=== PATIENT | female | born 1980 | race Caucasian/White ===

== ENCOUNTER 2017-05-11 13:06 | Emergency (ER) | payer OTHER ==
[2017-05-11 13:31] VITALS: BP 111/73
--- NOTE | 2017-05-11 13:51 | UC ---
Skin Complaint HPI - HPI Summary HPI Summary: 36 y/o female presents to the urgent care c/o rash in the LF tight increasing in size after a tick bite since 05/06/2017 . Pt reports she has Hx of tick bite and never taking prophylactic antibiotics. She usually applies an essential oil for tick bites that repels them easily. However after this tick bite, she noticed the red rash was increasing in size. She also went out hiking 2 days ago and now she also itchy rash in both arms and both feet. Seh thinks it is poison niki. She had a midl ASH yesterday which resolved with Advil.Pt denies fever, SOB, chest pain, abdominal pain, N/V/D. She has been taking Benadryl PO for itchiness. - History of Current Complaint Chief Complaint: UCRash Time Seen by Provider: 05/11/17 13:36 Stated Complaint: RASH Hx Obtained From: Patient Hx Last Menstrual Period: 05/10/17 ?: No Onset/Duration: Gradual Onset, Lasting Days - 6 days, Still Present Skin Exposure Onset/Duration: Days Ago Timing: Constant Onset Severity: Mild Current Severity: Moderate Pain Intensity: 0 Pain Scale Used: 0-10 Numeric Location: Discrete - Bull's eye rash in left tight, other rash in both forearms and Both feet Character: Pruritus, Redness Aggravating Factor(s): Touch Alleviating Factor(s): OTC Meds Associated Signs & Symptoms: Positive: Rash. Negative: Nausea, Vomiting, Fever , Chest Pain, Abdominal Pain Related History: Possible Reaction to: Insect, Possible Reaction to: Environmental Exposure - Allergy/Home Medications Allergies/Adverse Reactions: Allergies Allergy/AdvReac Type Severity Reaction Status Date / Time Latex Allergy Itching Verified 11/21/15 06:54 Review of Systems Constitutional: Negative Skin: Rash - bull's eye rash in left tigh, and other rash in both forearms and both feet Eyes: Negative ENT: Negative Respiratory: Negative Cardiovascular: Negative Gastrointestinal: Negative Genitourinary: Negative Motor: Negative Neurovascular: Negative Musculoskeletal: Negative Neurological: Headache - mild yesterday Psychological: Negative Is Patient Immunocompromised?: No All Other Systems Reviewed And Are Negative: Yes PMH/Surg Hx/FS Hx/Imm Hx Previously Healthy: Yes Endocrine History: Hypothyroidism - Surgical History Surgical History: Yes Surgery Procedure, Year, and Place: [place] [facility]. tonsilectomy - Family History Known Family History: Positive: Cardiac Disease, Hypertension, Diabetes Family History: Hypothyrodism - Social History Occupation: Employed Full-time Lives: With Family Alcohol Use: None Substance Use Type: None Smoking Status (MU): Never Smoked Tobacco Physical Exam Triage Information Reviewed: Yes Vital Signs: Initial Vital Signs Temp 99.9 F 05/11/17 13:25 Pulse 76 05/11/17 13:25 Resp 18 05/11/17 13:25 BP 111/73 05/11/17 13:25 Pulse Ox 100 05/11/17 13:25 - Additional Comments Vital Signs Reviewed: Yes General: well developed, well nourished female, sitting in the examining table w /o any apparent distress. Eyes: Positive: Conjunctiva Clear - PERRLA, EOMI ENT: Positive: Normal ENT inspection, Hearing grossly normal, Pharynx normal, TMs normal Neck: Positive: Supple, Nontender, No Lymphadenopathy Respiratory: Positive: Chest nontender, Lungs clear, Normal breath sounds Cardiovascular: Positive: RRR, No Murmur, Pulses Normal Abdomen Description: Positive: Nontender, No Organomegaly, Soft. Negative: CVA Tenderness (R), CVA Tenderness (L) Bowel Sounds: Positive: Present Musculoskeletal: Positive: Strength Intact, ROM Intact, No Edema Neurological Exam: Normal Psychological Exam: Normal Skin: Positive: rashes - mid aspect of Left thigh with bull's eye erythematous patch with a central clearing about 6cm x5cm in size, non tender to palpation, warm to touch, no swelling or drainage observed. Other different rash in both distal forearms and both ventral side of feet with erythematous linear streaks w/ papules, blisters and vesicles with signs of scoriations. non tender to palpation, mild swelling observed in some. Course/Dx - Course Course Of Treatment: 36 y/o female presents to the urgent care c/o rash in the LF tight increasing in size after a tick bite since 05/06/2017 . Pt reports she has Hx of tick bite and never taking prophylactic antibiotics. She usually applies an essential oil for tick bites that repels them easily. However after this tick bite, she noticed the red rash was increasing in size. She also went out hiking 2 days ago and now she also itchy rash in both arms and both feet. Seh thinks it is poison niki. She had a midl ASH yesterday which resolved with Advil.Pt denies fever, SOB, chest pain, abdominal pain, N/V/D. She has been taking Benadryl PO for itchiness. Hx obtained. Pt most likely with Lyme Disease on examination, with another rash that appear as poison Niki or sumac. Pt Rx Doxycycline PO . Advised to f/u with her PCP in 2 weeks for Lyme serology and further managment. However strongly advised to f/u with Dr Matthews if serology returns positive. Pt Rx Traimcinolone topical cream for the other rash and advised to keep taking Benadryl PO for itchiness. Pt understood and agreed with plan of care. - Differential Diagnoses - Skin Complaint Differential Diagnoses: Allergic Reaction, Cellulitis, Contact Dermatitis, Eczema, Local Allergic Reaction, Lymphadenitis, Poison Niki, Poison [place], Tick Born Illness, Urticaria, Other - insect bites, bed bugs - Diagnoses Provider Diagnoses: 1- Bull's eye rash possibly lyme disease. 2- poison niki Discharge - Discharge Plan Condition: Stable Disposition: HOME Prescriptions: DOXYcycline CAP(*) [DOXYcycline 100MG CAP(*)] 100 mg PO BID #28 cap Triamcinolone 0.1% OINT(NF) [Kenalog 0.1% OINT(NF)] 1 applic .SEE ORDER TID #1 tube Patient Education Materials: Lyme Disease (ED), Poison Niki (ED) Referrals: Byron CORNELIUS,Christopher Aviles [Medical Doctor] - 2 Weeks Ankit Ordonez MD [Primary Care Provider] - 2 Weeks Additional Instructions: 1- Please take full course of antibiotic to avoid resistance. 2- F/u with your PCP in 2 weeks or lyme serology and further management in Lyme Disease 3- F/u with DR Matthews who specializes in Lyme Disease just in case the serology returns positive. 4- Apply Triamcinolone cream for the other rash as directed. Continue taking the Benadryl PO you have at home for itchiness
== END 2017-05-11 14:14 | disposition home or self-care (01) ==
LOC: UCEAST 13:06
DX: L23.7 Allergic contact dermatitis due to plants, except food (principal); H57.8 Other specified disorders of eye and adnexa; E03.9 Hypothyroidism, unspecified
CPT/HCPCS: 99212; G0463

== ENCOUNTER 2018-02-14 16:18 | Emergency (ER) | payer OTHER ==
--- NOTE | 2018-02-14 16:46 | UC ---
Complaint Female HPI - HPI Summary HPI Summary: 37 yo female presents with 5 days of dysuria. She has been drinking a lot of water and cranberry juice to "flush" out her symptoms. She tells me that about 4 months ago she had similar symptoms and was treated for a UTI with resolution of symptoms. Recently has been feeling pressure in bladder and like she is not "emptying her bladder" when she goes. Denies fever, chills, abdominal pain, n/v/ d/c, hematuria, vaginal pain/discharge. No hx of kidney stone. - History Of Current Complaint Stated Complaint: UTI Time Seen by Provider: 02/14/18 16:46 Hx Obtained From: Patient Hx Last Menstrual Period: 05/10/17 Onset/Duration: Gradual Onset Severity Initially: Mild Severity Currently: Mild Pain Intensity: 3 Pain Scale Used: 0-10 Numeric - Allergies/Home Medications Allergies/Adverse Reactions: Allergies Allergy/AdvReac Type Severity Reaction Status Date / Time latex Allergy Rash Verified 02/14/18 16:54 PMH/Surg Hx/FS Hx/Imm Hx Endocrine History: Hypothyroidism Psychological History: Anxiety - Surgical History Surgical History: Yes Surgery Procedure, Year, and Place: [place] [facility]. tonsilectomy - Family History Known Family History: Positive: Unknown, Cardiac Disease, Hypertension, Diabetes Family History: Hypothyrodism - Social History Occupation: Employed Full-time Lives: With Family Alcohol Use: None Substance Use Type: None Smoking Status (MU): Never Smoked Tobacco Review of Systems Constitutional: Negative Skin: Negative Respiratory: Negative Cardiovascular: Negative Gastrointestinal: Negative Genitourinary: Dysuria, Urgency Neurovascular: Negative Neurological: Negative Psychological: Negative All Other Systems Reviewed And Are Negative: Yes Physical Exam - Summary Physical Exam Summary: GENERAL: NAD. WDWN. No pain distress. SKIN: No rashes, sores, lesions, or open wounds. NECK: Supple. Nontender. No lymphadenopathy. CHEST: CTAB. No r/r/w. No accessory muscle use. Breathing comfortably and in no distress. CV: RRR. Without m/r/g. Pulses intact. Brisk cap refill. ABDOMEN: Soft. Mild TTP over bladder. No distention or guarding. No CVA tenderness. Bowel sounds present NEURO: Alert. CN II-XII grossly intact. PSYCH: Age appropriate behavior. Triage Information Reviewed: Yes Vital Signs: Vital Signs: Temp Pulse Resp BP Pulse Ox 97.6 F 65 16 119/71 100 02/14/18 16:47 02/14/18 16:47 02/14/18 16:47 02/14/18 16:47 02/14/18 16:47 Laboratory Tests 02/14/18 02/14/18 17:02 17:04 POC Urine Color Yellow POC Urine Clarity Clear POC Urine pH 7.0 POC Ur Specif [place] 1.015 POC Urine Protein Negative POC Ur Glucose (UA) Negative POC Urine Ketones Negative POC Urine Blood Negative POC Urine Nitrite Negative POC Urine Bilirubin Negative POC Urine Urobilinogen 0.2 POC U Leukocyte Esteras Negative POC Ur Test Negative Vital Signs Reviewed: Yes Complaint Female Dx - Course Course Of Treatment: UA negative for infection. Pt refused pelvic exam today. I discussed with her that we could treat her for a UTI based on her symptoms, but if her symptoms persist or worsen that she should f/u with her PCP. She was agreeable with this plan. - Differential Dx/Diagnosis Provider Diagnoses: Dysuria Discharge - Sign-Out/Discharge Documenting (check all that apply): Patient Departure - Discharge Plan Condition: Stable Disposition: HOME Prescriptions: Phenazopyridine 200 mg (NF) [Pyridium 200 MG tab *] 200 mg PO TID #6 tab Sulfamethox/Trimethoprim DS* [Bactrim DS 800/160 TAB*] 1 tab PO BID #10 tab Patient Education Materials: Dysuria (ED) Referrals: Ankit Ordonez MD [Primary Care Provider] - Additional Instructions: If you develop a fever, shortness of breath, chest pain, new or worsening symptoms - please call your PCP or go to the ED. - Billing Disposition and Condition Condition: STABLE Disposition: Home
[2018-02-14 16:54] VITALS: BP 119/71
--- NOTE | 2018-02-16 15:08 | UC ---
- Progress Note Progress Note: Urine final with no growth. If feeling better may continue anbx If no change in symptoms - stop anbx and needs f/u with PCP Discharge - Sign-Out/Discharge Documenting (check all that apply): Post-Discharge Follow Up - Discharge Plan Condition: Stable Disposition: HOME Prescriptions: Phenazopyridine 200 mg (NF) [Pyridium 200 MG tab *] 200 mg PO TID #6 tab Sulfamethox/Trimethoprim DS* [Bactrim DS 800/160 TAB*] 1 tab PO BID #10 tab Patient Education Materials: Dysuria (ED) Referrals: Ankit Ordonez MD [Primary Care Provider] - Additional Instructions: If you develop a fever, shortness of breath, chest pain, new or worsening symptoms - please call your PCP or go to the ED. - Billing Disposition and Condition Condition: STABLE Disposition: Home Attestations User Type: Provider - I was available for consult. This patient was seen by the JYOTHI. The patient was not presented to, seen by, or examined by me. -Gena
== END 2018-02-14 17:27 | disposition home or self-care (01) ==
LOC: UCEAST 16:18
DX: R30.0 Dysuria (principal)
CPT/HCPCS: 81003; 84702; 87086; 99212; G0463

== ENCOUNTER 2019-06-25 10:26 | Emergency (ER) | payer OTHER ==
--- NOTE | 2019-06-25 10:47 | ED ---
Head Injury - HPI Summary HPI Summary: This pt is a 38 y/o female presenting to [facility] c/o headache and back pain s/p mechanical fall this morning at 0730. Pt reports she slipped on ice and fell backwards hitting mostly her back but also her head "bounced off the pavement." Denies any LOC. Pt currently reports some nausea and having a difficulty time concentrating. Denies fever, vomiting, blurry vision. Currently pt rates her headache 4/10 in severity. LMP: couple of week ago. Denies risk or chance of . PMHx: termination 5 years ago, hypothyroidism. Denies any anticoagulants use. - History Of Current Complaint Chief Complaint: EDHeadInjury Stated Complaint: HEAD INJURY PER PT Time Seen by Provider: 06/25/19 10:34 Hx Obtained From: Patient Hx Last Menstrual Period: 03/07 Mechanism Of Injury: Blunt Trauma, Fall From A Standing Position Onset/Duration: Started Hours Ago, Still Present Onset of Pain: Hours Severity Initially: Moderate Pain Intensity: 4 Pain Scale Used: 0-10 Numeric Location of Head Injury: Diffuse Aggravating Factor(s): Other: - nothing Alleviating Factor(s): Other: - nothing Associated Signs And Symptoms: Nausea, Headache, Other: - POSITIVE: difficult time concentrating. NEGATIVE: vomiting, blurry vision - Allergies/Home Medications Allergies/Adverse Reactions: Allergies Allergy/AdvReac Type Severity Reaction Status Date / Time latex Allergy Rash Verified 03/29/18 10:12 Home Medications: Home Medications Cetirizine HCl [Zyrtec] 10 mg PO DAILY 06/25/19 [History Confirmed 06/25/19] Cholecalciferol TAB* [Vitamin D TAB*] 1,000 unit PO DAILY 06/25/19 [History Confirmed 06/25/19] Elderberry Fruit and Flower [Black Elderberry 575 mg] 1 cap PO DAILY 06/25/19 [ History Confirmed 06/25/19] Multivit-Min/Folic Acid/Vit K1 [Multi For Her 50 Plus Softgel] 1 each PO DAILY 06/25/19 [History Confirmed 06/25/19] Naproxen TAB* [Naprosyn 250 mg TAB*] 250 mg PO Q12HR PRN 06/25/19 [History Confirmed 06/25/19] PMH/Surg Hx/FS Hx/Imm Hx Endocrine/Hematology History: Reports: Hx Thyroid Disease - HYPOTHYROID Denies: Hx Diabetes Cardiovascular History: Denies: Hx Hypertension Respiratory History: Denies: Hx Asthma, Hx Chronic Obstructive Pulmonary Disease (COPD) GI History: Denies: Hx Ulcer Sensory History: Reports: Hx Contacts or Glasses - BOTH Denies: Hx Hearing Aid Opthamlomology History: Reports: Hx Contacts or Glasses - BOTH Psychiatric History: Reports: Hx Anxiety, Hx Depression - Surgical History Surgical History: Yes Surgery Procedure, Year, and Place: [place] [facility]. tonsilectomy Hx Anesthesia Reactions: No Infectious Disease History: No Infectious Disease History: Denies: Hx Hepatitis, Hx Human Immunodeficiency Virus (HIV), Traveled Outside the [place] in Last 30 Days - Family History Known Family History: Positive: Cardiac Disease, Hypertension, Diabetes - grandmother with type 1 DM, father with type 2 DM Family History: Hypothyrodism - Social History Alcohol Use: None Hx Substance Use: No Substance Use Type: Reports: None Hx Tobacco Use: No Smoking Status (MU): Never Smoked Tobacco Review of Systems Negative: Fever Negative: Blurred Vision Positive: Nausea. Negative: Vomiting Musculoskeletal: Other - POSITIVE: back pain Neurological: Other - POSITIVE: difficulty concentrating. NEGATIVE: LOC Positive: Headache All Other Systems Reviewed And Are Negative: Yes Physical Exam - Summary Physical Exam Summary: GENERAL: Patient is a well-developed and nourished female who is lying comfortable in the stretcher. Patient is not in any acute respiratory distress. Patient is tearful. HEAD AND FACE: No signs of trauma. No ecchymosis, hematomas or skull depressions. No sinus tenderness. EYES: PERRLA, EOMI x 2, No injected conjunctiva, no nystagmus. EARS: Hearing grossly intact. Ear canals and tympanic membranes are within normal limits. MOUTH: Oropharynx within normal limits. NECK: Supple, trachea is midline, no adenopathy, no JVD, no carotid bruit, no c- spine tenderness, neck with full ROM. CHEST: Symmetric, no tenderness at palpation LUNGS: Clear to auscultation bilaterally. No wheezing or crackles. CVS: Regular rate and rhythm, S1 and S2 present, no murmurs or gallops appreciated. ABDOMEN: Soft, non-tender. No signs of distention. No rebound no guarding, and no masses palpated. Bowel sounds are normal. EXTREMITIES: FROM in all major joints, no edema, no cyanosis or clubbing. NEURO: Alert and oriented x 3. No acute neurological deficits. Speech is normal and follows commands. SKIN: Dry and warm PSYCH: Patient is tearful. GCS: 15 Triage Information Reviewed: Yes Vital Signs On Initial Exam: Initial Vitals Temp Pulse Resp BP Pulse Ox 97.9 F 70 18 132/82 99 06/25/19 10:26 06/25/19 10:26 06/25/19 10:26 06/25/19 10:26 06/25/19 10:26 Vital Signs Reviewed: Yes Procedures - Sedation Patient Received Moderate/Deep Sedation with Procedure: No Diagnostics - Vital Signs Vital Signs Temp Pulse Resp BP Pulse Ox 06/25/19 10:26 97.9 F 70 18 132/82 99 - Laboratory Result Diagrams: 06/25/19 11:07 06/25/19 11:07 Lab Statement: Any lab studies that have been ordered have been reviewed, and results considered in the medical decision making process. - Radiology Chest XR Radiology Interpretation Completed By: Radiologist Summary of Radiographic Findings: IMPRESSION: No active cardiopulmonary disease. Dr. Harvey has reviewed this report. - CT Brain CT CT Interpretation Completed By: Radiologist Summary of CT Findings: IMPRESSION: No acute intracranial pathology. Dr. Harvey has reviewed this report. - EKG 11:32 Cardiac Rate: Bradycardia - at 57 bpm EKG Rhythm: Sinus Bradycardia Summary of EKG Findings: EKG at 1132 shows sinus bradycardia at [address] elevations. Re-Evaluation - Re-Evaluation First Eval Re-Evaluation Time: 11:56 Comment: Reviewed the results with the patient. She will be discharged home. Head Injury Course/Dx Assessment/Plan: This pt is a 38 y/o female presenting to [facility] c/o headache and back pain s/p mechanical fall this morning at 0730. Pt reports she slipped on ice and fell backwards hitting mostly her back but also her head "bounced off the pavement." Denies any LOC. Pt currently reports some nausea and having a difficult time concentrating. Denies fever, vomiting, blurry vision. Currently pt rates her headache 4/10 in severity. LMP: a couple of weeks ago. Denies risk or chance of . PMHx: termination 5 years ago, hypothyroidism. Denies any anticoagulants use. Blood work without any significant abnormality. Troponin is 0.00. Chest x-ray impression: No active cardiopulmonary disease. Head CT impression: No acute intracranial pathology. In the ED course the patient was given ibuprofen and Zofran. After these medications the symptoms have improved. At this point, I discussed all the findings and test results with the patient. Patient was instructed to return to the emergency room immediately if any of the symptoms return or worsen. Patient understands and agrees. Neurological exam before discharge: Patient is alert and oriented x 3. No acute neurological deficits. Patient's vital signs are stable. Patient is to follow up with her PCP in the next 2 3 days. They understand and agree. The plan of care was discussed with the patient and patient understands and agrees with the plan of care. All questions were answered at patient satisfaction. There were no further complaints or concerns. - Diagnoses Provider Diagnoses: Head contusion, Atypical chest pain Discharge ED - Sign-Out/Discharge Documenting (check all that apply): Patient Departure - Discharge home - Discharge Plan Condition: Stable Disposition: HOME Patient Education Materials: Chest Pain (ED), Contusion in Adults (ED) Referrals: Ankit Ordonez MD [Primary Care Provider] - Additional Instructions: FOLLOW UP WITH YOUR PRIMARY CARE PROVIDER IN 2-3 DAYS. RETURN TO THE EMERGENCY DEPARTMENT FOR ANY WORSENING OR NEW SYMPTOMS. - Billing Disposition and Condition Condition: STABLE Disposition: Home - Attestation Statements Document Initiated by Rhona: Yes Documenting Scribe: Kerry Munguia Provider For Whom Rhona is Documenting (Include Credential): Akhil Harvey MD Scribe Attestation: Kerry Israel, scribed for Akhil Harvey MD on 06/27/19 at 0925. Scribe Documentation Reviewed: Yes Provider Attestation: The documentation as recorded by the Kerry sheikh accurately reflects the service I personally performed and the decisions made by , Akhil Harvey MD Status of Scribe Document: Viewed
--- OUTSIDE RECORDS SUMMARY | 2019-06-25 11:03 | XMS REPORT | Continuity of Care Document ---
:1980 External Reference #:[id number] Author Name Jomar Dao CNM Address [address] [place] [id number] Care Team Providers Name Role Phone Ankit Ordonez M.D. Care Team Information Order Administrator [phone] Problems Active Problems Provider Date Depressive disorder Jomar Dao CNM Onset: 02/06/2012 Disorder of thyroid gland Jomar Dao CNM Onset: 02/06/2012 Uterine leiomyoma Jomar Dao CNM Onset: 05/28/2019 Social History Type Date Description Comments Sex Unknown Tobacco Use Start: Unknown Patient has never smoked Allergies, Adverse Reactions, Alerts Description No Known Drug Allergies Medications Active Medications SIG Qnty Indications Ordering Provider Date Naproxen 2 PO x 1 dose 30tabs Jomar Dao CNM 04/16/2019 250mg Tablets with onset menses then 1 PO q 6-8 hours prn Zyrtec Allergy Unknown 10mg Capsules Levothyroxine Sodium Take 1 Tablet 30tabs Kate Dennis CNM 88mcg By Mouth Every Tablets Day Probiotic Unknown Capsules Carli FX Unknown Echinacea/Goldenseal Unknown Immune Boost Capsules Cranberry Concentrate Unknown [id number]-mg-Unit Capsules Vitamin D Unknown 2000Unit Capsules Turmeric Unknown 400mg Capsules Medications Administered in Office Medication SIG Qnty Indications Ordering Provider Date PT SCRN Tbco Id as Non User Jomar Dao CNM 05/28/2019 Injection PT SCRN Tbco Id as Non User Jomar Dao CNM 04/16/2019 Injection PT SCRN Tbco Id as Non User Jomar Dao CNM 04/15/2018 Injection Immunizations Description No Information Available Vital Signs Date Vital Result Comment 05/28/2019 3:10pm BP Systolic 122 mmHg BP Diastolic 64 mmHg Height 66.25 inches 5'6.25" Weight 191.00 lb BMI (Body Mass Index) 30.6 kg/m2 Last Menstrual Period 4403852 2 Parity 1 04/16/2019 3:17pm BP Systolic 128 mmHg BP Diastolic 72 mmHg Height 66.25 inches 5'6.25" Weight 188.00 lb BMI (Body Mass Index) 30.1 kg/m2 Last Menstrual Period [id number] 2 Parity 1 Results Description No Information Available Procedures Date Code Description Status 05/28/2019 51667 Echography Transvaginal Completed Medical Devices Description No Information Available Encounters Type Date Location Provider Dx Diagnosis Office Visit 05/28/2019 [facility] Jomar Dao CNM D25.9 Leiomyoma of uterus, 3:30p unspecified N94.6 Dysmenorrhea, unspecified Office Visit 04/16/2019 3:30p [facility] Jomar Dao Z01.419 Encntr for process trainer LEONEL exam (general) (routine) w/o abn findings N94.6 Dysmenorrhea, unspecified Assessments Date Code Description Provider 05/28/2019 D25.9 Leiomyoma of uterus, unspecified Jomar Dao CNM 05/28/2019 N94.6 Dysmenorrhea, unspecified Ultrasounds 05/28/2019 N94.6 Dysmenorrhea, unspecified Jomar Dao CNM 05/28/2019 D25.9 Leiomyoma of uterus, unspecified Ultrasounds 04/16/2019 Z01.419 Encounter for gynecological examination Jomar Dao CNM (general) (routine) without abnormal findings 04/16/2019 N94.6 Dysmenorrhea, unspecified Jomar Dao CNM Plan of Treatment No Information Available Functional Status Description No Information Available Mental Status Description No Information Available Referrals Description No Information Available
[2019-06-25 11:25] LABS: ABS Eosinophils 0.1 10^3/ul (0-0.6); ABS Lymphocytes 2.3 10^3/ul (1.0-4.8); ABS Monocytes 0.6 10^3/ul (0-0.8); Eosinophil % 1.8 %; Hematocrit 37 % (35-47); Hemoglobin 12.4 g/dL (12.0-16.0); Lymphocyte % 32.5 %; Mean Corpuscular HGB Conc 33 g/dL (31-36); Mean Corpuscular Hemoglobin 29 pg (27-31); Mean Corpuscular Volume 88 fL (80-97); Mean Platelet Volume 9.3 fL (7.4-10.4); Nucleated Red Blood Cells % 0.2; Platelet Count 189 10^3/uL (150-450); Red Blood Count 4.24 10^6 /uL (3.70-4.87); Red Cell Distribution Width 14 % (10-15)
[2019-06-25 11:42] LABS: ALT 14 U/L (7-52); AST 18 U/L (13-39); Albumin 3.9 g/dL (3.2-5.2); Albumin/Globulin Ratio 1.3 (1-3); Alkaline Phosphatase 50 U/L (34-104); Anion Gap 4 mmol/L (2-11); BUN/Creatinine Ratio 17.6 (8-20); Blood Urea Nitrogen 13 mg/dL (6-24); CO2 Carbon Dioxide 28 mmol/L (22-32); Calcium 9.4 mg/dL (8.6-10.3); Chloride 106 mmol/L (101-111); EGFR African American 105.7 (>60); EGFR Non-African American 87.4 (>60); Globulin 3.1 g/dL (2-4); Glucose 96 mg/dL (70-100); Potassium 4.5 mmol/L (3.5-5.0); Sodium 138 mmol/L (135-145)
[2019-06-25 11:46] LABS: CKMB ng/mL 3.1 ng/mL (0.6-6.3)
[2019-06-25 11:49] LABS: HCG Pregnancy < 0.60 mIU/mL
[2019-06-25] MEDS ORDERED: Ibuprofen TAB* 800 MG PO ONE (11:49)
[2019-06-25] MEDS ORDERED: Ondansetron ODT TAB* 4 MG SL PRN (11:49)
[2019-06-25 11:55] LABS: TSH (Thyroid Stimulating Horm) 2.04 mcIU/mL (0.34-5.60)
[2019-06-25 12:21] VITALS: BP 118/82
== END 2019-06-25 12:17 | disposition home or self-care (01) ==
LOC: ED 10:26
DX: S00.93XA Contusion of unspecified part of head, initial encounter (principal); R07.89 Other chest pain; W00.0XXA Fall on same level due to ice and snow, initial encounter; Y92.480 Sidewalk as the place of occurrence of the external cause; E03.9 Hypothyroidism, unspecified; F41.9 Anxiety disorder, unspecified; F32.9 Major depressive disorder, single episode, unspecified; Z79.899 Other long term (current) drug therapy; Z91.040 Latex allergy status
CPT/HCPCS: 36415; 70450; 71045; 80053; 82553; 83735; 83880; 84443; 84484; 84702; 85025; 93005; 99283; A9270-GY